=== PATIENT | male | born 1960 | race Caucasian/White ===

== ENCOUNTER → 2021-09-18 10:11 | Outpatient (CLI) | payer OTHER, SELFPAY ==
--- NOTE | 2021-09-18 | DI.US.S_ITS ---
PROCEDURE: US CAROTID DOPPLER BI INDICATIONS: Atherosclerotic heart disease of [place] coronary artery with TECHNIQUE: Color and pulse Doppler interrogation was performed of both carotid systems, with image documentation and velocity measurements. COMPARISON: None. FINDINGS: Stenosis calculations are based on SRU (S[employer] in [employer]) criteria. The flow velocities and the arterial waveforms are normal within both carotid arterial systems. Atherosclerotic plaque is seen on both sides. The estimated degree of internal carotid artery stenosis is less than 50%. Antegrade flow is confirmed within both vertebral arteries. IMPRESSION: No hemodynamically significant stenosis is seen. Atherosclerotic plaque is noted bilaterally. Dictated by: Maxx Winchester M.D. on 09/18/2021 at 13:16 Approved by: Maxx Winchester M.D. on 09/18/2021 at 13:16
--- NOTE | 2021-09-18 | DI.CT.S_ITS ---
PROCEDURE: CT CHEST WO CON INDICATIONS: Atherosclerotic heart disease of [place] coronary artery with TECHNIQUE: Noncontrast 5 mm thick sections acquired from the pulmonary apices to the posterior costophrenic angles. 1 mm lung window, 5 mm thick coronal and sagittal and 7 mm axial MIP reformats were then acquired. For radiation dose reduction, the following was used: automated exposure control, adjustment of mA and/or kV according to patient size. COMPARISON: None. FINDINGS: Image quality: Excellent. Lungs and pleura: No acute air space opacities. No pleural effusions or pneumothorax. Central and peripheral airways are patent and normal in caliber. Mediastinum: Heart size is normal. Extensive coronary artery calcifications in the LAD. Mild coronary artery calcifications in the RCA. There is a calcification in the left circumflex with possible coronary stent. No pericardial effusion. No mediastinal adenopathy by size criteria. Thoracic aorta and central pulmonary arteries are normal in size. Possible thickening of the upper esophagus, (2/16). No hiatal hernia. Bones and chest wall: No suspicious bony lesions. No vertebral body compression fractures. No axillary or supraclavicular adenopathy by size criteria. Thyroid gland is unremarkable. Abdomen: Visualized upper abdominal solid organs and bowel loops appear normal in the absence of contrast. IMPRESSION: 1. Extensive coronary artery calcifications. 2. Possible mild thickening of the upper esophagus. This could be further evaluated with endoscopy. 3. Lungs are clear. Dictated by: Jorge Araujo M.D. on 09/18/2021 at 11:14 Approved by: Jorge Araujo M.D. on 09/18/2021 at 11:23
== END ==
PROVIDERS: PCP Physician Assistant Medical; Referring Provider Internal Medicine Cardiovascular Disease; Visit Provider Internal Medicine Cardiovascular Disease
DX: I25.10 Atherosclerotic heart disease of native coronary artery without angina pectoris (principal); E78.5 Hyperlipidemia, unspecified; I21.4 Non-ST elevation (NSTEMI) myocardial infarction; Z68.39 Body mass index [BMI] 39.0-39.9, adult; F17.200 Nicotine dependence, unspecified, uncomplicated; R06.00 Dyspnea, unspecified; R94.31 Abnormal electrocardiogram [ECG] [EKG]; I51.9 Heart disease, unspecified; R26.89 Other abnormalities of gait and mobility
CPT/HCPCS: 71250; 93880